=== PATIENT | female | born 1970 | race Hispanic/Latino ===

== ENCOUNTER 2018-11-20 13:26 | Outpatient (CLI) | payer BC ==
--- NOTE | 2018-11-20 15:42 | ULT ---
RIGHT BREAST ULTRASOUND: Date: 11/20/18 COMPARISON: Mammogram dated 11/06/18. 09/20/16. HISTORY: Focal asymmetries in upper outer aspect of right breast. TECHNIQUE: Multiplanar Hanna scale and color Doppler images were obtained in a targeted ultrasound of the upper o uter aspect of the right breast. FINDINGS: Two small anechoic cysts are seen in the right breast. The largest is seen at the 9 o'clock position measuring 8 mm in size. These are smaller than the previously seen cysts in this location on prior ma mmogram and ultrasound. No suspicious mass or suspicious shadowing is seen. IMPRESSION: BI-RADS Category 2 - Benign findings. Annual screening mammography recommended. POS: [facility]
== END 2018-11-20 13:27 | disposition home or self-care (01) ==
LOC: BICULT 13:26
PROVIDERS: ATTEND Obstetrics & Gynecology
DX: N63.11 Unspecified lump in the right breast, upper outer quadrant (principal)